=== PATIENT | female | born 1940 | race Caucasian/White ===

== ENCOUNTER → 2018-04-10 | Outpatient (CLI) | payer MEDICARE | END | disposition home or self-care (01) | LOC: OIH 08:42 | PROVIDERS: ATTEND Internal Medicine | DX: J44.9 Chronic obstructive pulmonary disease, unspecified (principal) | CPT/HCPCS: 71046 ==

== ENCOUNTER 2021-02-12 08:48 | Inpatient (IN) | payer MEDICARE ==
[~2021-02-12] VITALS: Ht 162.6 cm; Wt 83.8 kg
[2021-02-12 09:57] LABS: BASOPHILS % (AUTO) 0.3 % (0.0-5.0); EOSINOPHILS % (AUTO) 1.6 % (0.0-8.0); HEMATOCRIT 30.1 % (36-48); LYMPHOCYTES % (AUTO) 21.9 % (21.0-51.0); MEAN CORPUSCULAR HEMOGLOBIN 32.8 pg (27.0-33.0); MEAN CORPUSCULAR HGB CONC 32.6 g/dL (32.0-36.0); MEAN CORPUSCULAR VOLUME 100.7 fL (79-99); MONOCYTES % (AUTO) 8.2 % (3.0-13.0); NEUTROPHILS % (AUTO) 67.7 % (40.0-77.0); PLATELET COUNT (AUTO) 214 K/uL (130-400); RED BLOOD CELL COUNT(AUTO) 2.99 MIL/uL (4.00-5.50); RED CELL DISTRIBUTION WIDTH 14.3 % (11.0-15.5); WHITE BLOOD COUNT (AUTO) 7.3 K/uL (4.8-10.8)
[2021-02-12 10:07] LABS: INR 2.34 (0.85-1.15); PROTHROMBIN TIME 23.6 SEC (9.6-11.6)
[2021-02-12 10:22] LABS: THYROID STIMULATING HORMONE 3.41 uIU/mL (0.36-3.74)
[2021-02-12 10:27] LABS: B-TYPE NATRIURETIC PEPTIDE 205 pg/mL (0-100)
[2021-02-12] MEDS ORDERED: ZOSYN 3.375GM +NS 50ML IV ONE (10:30)
[2021-02-12] MEDS ORDERED: 0.9%NACL 1000ML 500 ML IV ONE ×2 (10:30→12:00)
[2021-02-12] MEDS ORDERED: 0.9% NACL 500ML IV.SOLN 500 ML IV ONE ×2 (10:34→11:44)
[2021-02-12] MEDS ORDERED: 0.9%NACL 50ML 50 ML IV ONE (10:43)
[2021-02-12 11:15] VITALS: BP 122/63
[2021-02-12 11:31] LABS: APPEARANCE,URINE CLOUDY (CLEAR); BILIRUBIN,URINE NEGATIVE (NEGATIVE); COLOR,URINE YELLOW (YELLOW); GLUCOSE, URINE (UA) NEGATIVE (NEGATIVE); KETONES,URINE NEGATIVE (NEGATIVE); LEUKOCYTE ESTERASE ,URINE SMALL (NEGATIVE); NITRATE,URINE POSITIVE (NEGATIVE); OCCULT BLOOD,URINE NEGATIVE (NEGATIVE); PROTEIN,URINE NEGATIVE (NEGATIVE)
[2021-02-12] MEDS ORDERED: FENTANYL CITRATE PF 50 MCG/1 ML 2ML VIAL ONE (11:41)
[2021-02-12 11:46] LABS: BACTERIA,URINE Many /HPF (None Seen); RBC,URINE 0-1 /HPF (0-1); SQUAMOUS EPITHELIAL CELL,UR Few /HPF (0-2); WBC,URINE 26-50 /HPF (0-1)
[2021-02-12 11:48] LABS: CREATININE 1.1 mg/dL (0.5-1.5); POTASSIUM 3.8 mmol/L (3.5-5.1)
[2021-02-12 11:53] LABS: ALBUMIN 3.5 g/dL (3.5-5.0); BILIRUBIN,TOTAL 1.4 mg/dL (0.2-1.0); TOTAL PROTEIN, SERUM 6.7 g/dL (6.0-8.3)
[2021-02-12] MEDS ORDERED: FENTANYL CITRATE PF 50 MCG/1 ML 2ML VIAL IVP SCH (12:00)
[2021-02-12] MEDS ORDERED: 0.9%NACL 1000ML 1,000 ML IV ONE (13:30)
[2021-02-12] MEDS ORDERED: FENTANYL CITRATE PF 50 MCG/1 ML 2ML VIAL IVP ONE (13:30)
[2021-02-12] MEDS ORDERED: HYDROMORPHONE 0.5 MG SYG (0.5MG/0.5ML) ONE (18:16)
[2021-02-12] MEDS ORDERED: HYDROMORPHONE 0.5 MG SYG (0.5MG/0.5ML) IVP PRN (18:30)
[2021-02-12] MEDS: 1/2 NS 1000ML 1,000 ML IV SCH (20:28)
[2021-02-12] MEDS: ZOSYN 3.375GM +NS 50ML IV SCH (21:23)
[2021-02-12 23:15] VITALS: BP 122/63
[2021-02-13] MEDS ORDERED: CARV25TA PO (00:49)
[2021-02-13] MEDS ORDERED: WARF5TAB8 PO (00:49)
[2021-02-13] MEDS ORDERED: DILT180C86 PO (00:49)
[2021-02-13] MEDS ORDERED: LEVO25CA4 PO (00:49)
[2021-02-13] MEDS ORDERED: ATOR10TA69 PO (00:49)
[2021-02-13 04:00] VITALS: BP 113/59
[2021-02-13] MEDS: ZOSYN 3.375GM +NS 50ML IV SCH ×3 (04:27→21:28)
[2021-02-13] MEDS: 1/2 NS 1000ML 1,000 ML IV SCH (04:30)
[2021-02-13 05:21] LABS: BASOPHILS % (AUTO) 0.4 % (0.0-5.0); EOSINOPHILS % (AUTO) 1.9 % (0.0-8.0); HEMATOCRIT 30.5 % (36-48); LYMPHOCYTES % (AUTO) 31.5 % (21.0-51.0); MEAN CORPUSCULAR HEMOGLOBIN 32.1 pg (27.0-33.0); MEAN CORPUSCULAR HGB CONC 30.8 g/dL (32.0-36.0); MEAN CORPUSCULAR VOLUME 104.1 fL (79-99); MONOCYTES % (AUTO) 8.1 % (3.0-13.0); NEUTROPHILS % (AUTO) 57.8 % (40.0-77.0); PLATELET COUNT (AUTO) 220 K/uL (130-400); RED BLOOD CELL COUNT(AUTO) 2.93 MIL/uL (4.00-5.50); RED CELL DISTRIBUTION WIDTH 14.6 % (11.0-15.5); WHITE BLOOD COUNT (AUTO) 7.5 K/uL (4.8-10.8)
[2021-02-13 05:55] LABS: ALBUMIN 3.3 g/dL (3.5-5.0); BILIRUBIN,TOTAL 1.6 mg/dL (0.2-1.0); CREATININE 0.9 mg/dL (0.5-1.5); POTASSIUM 3.7 mmol/L (3.5-5.1); TOTAL PROTEIN, SERUM 6.4 g/dL (6.0-8.3)
[2021-02-13] MEDS: HYDROMORPHONE 0.5 MG SYG (0.5MG/0.5ML) IVP PRN ×4 (06:30→21:28)
[2021-02-13 08:00] VITALS: BP 99/54
[2021-02-13 12:00] VITALS: BP 107/55
[2021-02-13 16:00] VITALS: BP 97/50
[2021-02-13 20:00] VITALS: BP 152/63
[2021-02-14] VITALS: BP 96/57
[2021-02-14] MEDS: HYDROMORPHONE 0.5 MG SYG (0.5MG/0.5ML) IVP PRN ×3 (02:50→20:28)
[2021-02-14 04:00] VITALS: BP_SYST 111
[2021-02-14] MEDS: ZOSYN 3.375GM +NS 50ML IV SCH ×3 (05:12→20:06)
[2021-02-14] MEDS ORDERED: SOLU-MEDROL 40MG VIAL IVP ONE (06:30)
[2021-02-14 08:00] VITALS: BP 107/44
[2021-02-14 12:00] VITALS: BP 116/60
[2021-02-14 16:00] VITALS: BP 121/60
[2021-02-14] MEDS ORDERED: SPIR1TAB4 PO (17:07)
[2021-02-14] MEDS ORDERED: HYDROCHLOROTHIAZIDE 25 MG TABLET PO PRN (17:30)
[2021-02-14] MEDS ORDERED: SPIRONOLACTONE 25 MG TAB PO PRN (17:30)
[2021-02-14 19:00] VITALS: BP 111/60
[2021-02-14] MEDS: CARVEDILOL 25 MG TABLET PO SCH (20:07)
[2021-02-15] VITALS (7 sets, daily range): BP systolic 93–151; BP diastolic 51–67
[2021-02-15] MEDS: ZOSYN 3.375GM +NS 50ML IV SCH ×3 (04:15→20:40)
[2021-02-15 05:24] LABS: BASOPHILS % (AUTO) 0.1 % (0.0-5.0); EOSINOPHILS % (AUTO) 1.9 % (0.0-8.0); HEMATOCRIT 27.9 % (36-48); LYMPHOCYTES % (AUTO) 11.3 % (21.0-51.0); MEAN CORPUSCULAR HEMOGLOBIN 32.1 pg (27.0-33.0); MEAN CORPUSCULAR HGB CONC 31.2 g/dL (32.0-36.0); MONOCYTES % (AUTO) 7.2 % (3.0-13.0); NEUTROPHILS % (AUTO) 79.1 % (40.0-77.0); PLATELET COUNT (AUTO) 213 K/uL (130-400); RED BLOOD CELL COUNT(AUTO) 2.71 MIL/uL (4.00-5.50); RED CELL DISTRIBUTION WIDTH 14.2 % (11.0-15.5); WHITE BLOOD COUNT (AUTO) 8.1 K/uL (4.8-10.8)
[2021-02-15 05:37] LABS: INR 1.41 (0.85-1.15); PROTHROMBIN TIME 14.9 SEC (9.6-11.6)
[2021-02-15] MEDS: LEVOTHYROXINE 25 MCG TABLET PO SCH (05:39)
[2021-02-15 05:43] LABS: ALBUMIN 2.9 g/dL (3.5-5.0); POTASSIUM 3.9 mmol/L (3.5-5.1); TOTAL PROTEIN, SERUM 6.2 g/dL (6.0-8.3)
[2021-02-15] MEDS: WARFARIN SODIUM 5 MG TAB PO SCH (09:00)
[2021-02-15] MEDS: HYDROMORPHONE 0.5 MG SYG (0.5MG/0.5ML) IVP PRN ×2 (12:36→20:37)
[2021-02-15] MEDS: DILTIAZEM 180MG SR CAP PO SCH (13:00)
[2021-02-15] MEDS: ATORVASTATIN 10 MG TABLET PO SCH (13:00)
[2021-02-15] MEDS: CARVEDILOL 25 MG TABLET PO SCH ×2 (13:01→20:39)
[2021-02-16 03:47] VITALS: BP 97/52
[2021-02-16] MEDS: ZOSYN 3.375GM +NS 50ML IV SCH ×3 (04:58→20:56)
[2021-02-16 05:00] VITALS: BP 118/62
[2021-02-16] MEDS: LEVOTHYROXINE 25 MCG TABLET PO SCH (06:31)
[2021-02-16 06:40] VITALS: BP 105/53
[2021-02-16] MEDS: HYDROMORPHONE 0.5 MG SYG (0.5MG/0.5ML) IVP PRN ×3 (06:47→17:45)
[2021-02-16] MEDS: ATORVASTATIN 10 MG TABLET PO SCH (09:00)
[2021-02-16] MEDS: DILTIAZEM 180MG SR CAP PO SCH (09:00)
[2021-02-16] MEDS: WARFARIN SODIUM 5 MG TAB PO SCH (09:00)
[2021-02-16] MEDS: CARVEDILOL 25 MG TABLET PO SCH ×2 (09:02→20:57)
[2021-02-16 10:31] LABS: INR 1.73 (0.85-1.15); PROTHROMBIN TIME 17.9 SEC (9.6-11.6)
[2021-02-16 11:30] VITALS: BP 99/42
[2021-02-16 16:00] VITALS: BP 106/47
[2021-02-16 20:00] VITALS: BP 110/59
[2021-02-17] VITALS: BP 116/64
[2021-02-17 04:00] VITALS: BP 118/62
[2021-02-17] MEDS: ZOSYN 3.375GM +NS 50ML IV SCH ×3 (04:22→20:26)
[2021-02-17] MEDS: HYDROMORPHONE 0.5 MG SYG (0.5MG/0.5ML) IVP PRN ×3 (04:30→22:26)
[2021-02-17 04:37] LABS: HEMATOCRIT 31.1 % (36-48); MEAN CORPUSCULAR HEMOGLOBIN 31.9 pg (27.0-33.0); MEAN CORPUSCULAR HGB CONC 31.5 g/dL (32.0-36.0); MEAN CORPUSCULAR VOLUME 101.3 fL (79-99); RED BLOOD CELL COUNT(AUTO) 3.07 MIL/uL (4.00-5.50); RED CELL DISTRIBUTION WIDTH 14.7 % (11.0-15.5)
[2021-02-17 04:56] LABS: INR 1.62 (0.85-1.15); PROTHROMBIN TIME 16.9 SEC (9.6-11.6)
[2021-02-17 04:58] LABS: PARTIAL THROMBOPLASTIN TIME 30.8 SEC (26.3-35.5)
[2021-02-17] MEDS: LEVOTHYROXINE 25 MCG TABLET PO SCH (05:53)
[2021-02-17 08:15] VITALS: BP 111/52
[2021-02-17] MEDS: DILTIAZEM 180MG SR CAP PO SCH (09:18)
[2021-02-17] MEDS: ATORVASTATIN 10 MG TABLET PO SCH (09:19)
[2021-02-17] MEDS: CARVEDILOL 25 MG TABLET PO SCH ×2 (09:19→20:30)
[2021-02-17 11:07] VITALS: BP 122/65
[2021-02-17 15:48] VITALS: BP 116/62
[2021-02-17 19:00] VITALS: BP 104/48
[2021-02-18] VITALS: BP 112/61
[2021-02-18 04:00] VITALS: BP 123/59
[2021-02-18] MEDS: ZOSYN 3.375GM +NS 50ML IV SCH ×3 (04:21→20:47)
[2021-02-18] MEDS: LEVOTHYROXINE 25 MCG TABLET PO SCH (05:10)
[2021-02-18 08:00] VITALS: BP 122/61
[2021-02-18] MEDS: ATORVASTATIN 10 MG TABLET PO SCH (08:39)
[2021-02-18] MEDS: CARVEDILOL 25 MG TABLET PO SCH ×2 (08:39→20:47)
[2021-02-18] MEDS: DILTIAZEM 180MG SR CAP PO SCH (08:40)
[2021-02-18 12:00] VITALS: BP 120/61
[2021-02-18] MEDS: HYDROMORPHONE 0.5 MG SYG (0.5MG/0.5ML) IVP PRN ×2 (15:10→21:36)
[2021-02-18 16:00] VITALS: BP 113/59
[2021-02-18 21:01] VITALS: BP 125/60
[2021-02-19] VITALS: BP 132/68
[2021-02-19] MEDS ORDERED: LORAZEPAM 2 MG/ML 1 ML VIAL ONE (02:25)
[2021-02-19 04:55] VITALS: BP 100/49
[2021-02-19] MEDS: ZOSYN 3.375GM +NS 50ML IV SCH ×2 (05:19→13:15)
[2021-02-19] MEDS: LEVOTHYROXINE 25 MCG TABLET PO SCH (05:31)
[2021-02-19 07:30] VITALS: BP 124/62
[2021-02-19] MEDS: ATORVASTATIN 10 MG TABLET PO SCH (09:46)
[2021-02-19] MEDS: DILTIAZEM 180MG SR CAP PO SCH (09:46)
[2021-02-19] MEDS: CARVEDILOL 25 MG TABLET PO SCH (09:47)
[2021-02-19 11:25] VITALS: BP 98/38
[2021-02-19 15:15] VITALS: BP 107/44
== END 2021-02-19 19:20 | DRG 605 ==
LOC: EDH 08:48 → EDHIP 14:10 → 3AH 21:30
PROVIDERS: ADMIT Internal Medicine; ATTEND Internal Medicine
DX: S80.12XA Contusion of left lower leg, initial encounter (principal); L03.116 Cellulitis of left lower limb; D68.9 Coagulation defect, unspecified; I48.91 Unspecified atrial fibrillation; J44.9 Chronic obstructive pulmonary disease, unspecified; G56.02 Carpal tunnel syndrome, left upper limb; Z20.822 Contact with and (suspected) exposure to COVID-19; S80.02XA Contusion of left knee, initial encounter; I25.10 Atherosclerotic heart disease of native coronary artery without angina pectoris; I10 Essential (primary) hypertension; W19.XXXA Unspecified fall, initial encounter; Y93.89 Activity, other specified; Y92.89 Other specified places as the place of occurrence of the external cause; Y99.8 Other external cause status; Z87.891 Personal history of nicotine dependence; Z79.01 Long term (current) use of anticoagulants
CPT/HCPCS: 36415; 70450; 71045; 73552; 73562; 73721; 74176; 80053; 81001; 82550; 83605; 83874; 83880; 84443; 84484; 85025; 85027; 85610; 85730; 86850; 86900; 86901; 87040; 87077; 87088; 87186; 87635; 93005; 93926; 93971; 97039; C9803; G0378; J1170; J2060; J2543; J2920; J3010; J7030; J7040